=== PATIENT | male | born 1975 | race Caucasian/White ===

== ENCOUNTER 2024-03-27 14:05 | Outpatient (CLI) | payer BC, SELFPAY ==
[2024-03-27 17:07] LABS: Basophils Absolute Auto 0.1 K/mm3 (0.0-0.1); Basophils Percent Auto 0.5 % (0.2-1.2); Eosinophils Absolute Auto 0.2 K/mm3 (0-0.3); Eosinophils Percent Auto 1.8 % (0-4.4); Hematocrit 47.1 % (42.0-52.0); Hemoglobin 14.8 g/dL (14.0-18.0); Immature Granulocyte Absolute 0.03 K/mm3 (0.00-0.031); Immature Granulocyte Percent A 0.3 % (0-0.5); Lymphocytes Absolute Auto 2.78 K/mm3 (0.9-3.2); Lymphocytes Percent Auto 30.2 % (18.3-44.2); Mean Corpuscular HGB Conc 31.4 g/dl (32-36); Mean Corpuscular Hemoglobin 28.4 pg (26-34); Mean Corpuscular Volume 90.4 fl (80-100); Mean Platelet Volume 11.3 fl (7.4-10.4); Monocytes Absolute Auto 0.7 K/mm3 (0.1-0.6); Monocytes Percent Auto 7.4 % (2.6-8.5); Neutrophils Absolute Auto 5.5 K/mm3 (1.3-6.7); Neutrophils Percent Auto 59.8 % (45.5-73.1); Platelet Count Result 331 k/mm3 (150-375); Red Blood Count 5.21 M/mm3 (4.6-6.20); Red Cell Distribution Width 14.2 % (11.5-14.5); White Blood Count 9.2 K/mm3 (4.5-10.0)
[2024-03-27 17:45] LABS: Alanine Aminotransferase 31 U/L (6-50); Albumin Level 4.3 g/dL (3.5-5.1); Alkaline Phosphatase 101 U/L (38-126); Anion Gap 7 mmol/L (4-12); Aspartate Amino Transferase 59 U/L (17-59); Bilirubin,Total 0.5 mg/dL (0.2-1.3); Blood Urea Nitrogen 14 mg/dL (9-20); Calcium 9.4 mg/dL (8.4-10.2); Carbon Dioxide 34 mmol/L (22-30); Chloride 100 mmol/L (98-107); Estimated Glomerular Filt Rate > 60; Glucose 142 mg/dL (65-110); Potassium 4.4 mmol/L (3.4-5.0); Sodium 141 mmol/L (137-145)
[2024-03-27 18:11] LABS: Prostate Specific Antigen 0.1 ng/mL (< OR = 4.0)
[2024-03-27 18:30] LABS: Hemoglobin A1C 6.7 % (<5.7)
[2024-03-27 19:02] LABS: Creatinine Urine 162.4 mg/dL
[2024-03-27 19:47] LABS: MALB Creatinine Ratio 457.8 mg/g (0-30); Microalbumin Urine Random 743.5 mg/L (0-16.7)
== END 2024-03-27 14:06 | disposition home or self-care (01) ==
LOC: ANHGOSHLAB 14:06
PROVIDERS: PCP Nurse Practitioner; Visit Provider Nurse Practitioner
DX: E11.9 Type 2 diabetes mellitus without complications (principal); Z12.5 Encounter for screening for malignant neoplasm of prostate
CPT/HCPCS: 36415; 80053; 82043; 83036; 84153; 85025; G0103

== ENCOUNTER 2024-09-29 14:10 | Outpatient (CLI) | payer BC, SELFPAY ==
--- OUTSIDE RECORDS SUMMARY | 2024-09-29 15:47 | XMS_ITS | Clinical Summary ---
Author Organization [facility] Address [address] [place] [address] Phone Care Team Providers Care Technical Sales Associate Name Role Phone Ellyn Phillips APRN, ENROLLMENT REPRESENTATIVE Primary Care Provider +1- [phone] Allergies No known active allergies Medications atorvastatin (LIPITOR) 40 MG Tablet Take 40 mg by mouth daily. Active metFORMIN (GLUCOPHAGE) 1000 MG Tablet Take 1,000 mg by mouth 2 times daily (with meals). Active amLODIPine (NORVASC) 5 MG Tablet Take 5 mg by mouth daily. Active glipiZIDE (GLUCOTROL) 5 MG Tablet Take 5 mg by mouth in the morning and at bedtime. Active lisinopril (PRINIVIL, ZESTRIL) 20 MG Tablet Take 20 mg by mouth daily. Active Ascorbic Acid (VITAMIN C PO) Take by mouth three times a week. Active semaglutide,0.2 5 or 0.5MG/DOS, (Ozempic, 0.25 or 0.5 MG/DOSE,) 2 MG/3ML Solution Pen-injectorInd ications:Type 2 diabetes mellitus without complication, without long-term current use of insulin 0.5 mg by Subcutaneous route once a week. 3 mL Active Active Problems Problem Noted Date Diagnosed Date Type 2 diabetes mellitus wit hout complication, without long-term current use of insulin 11/08/2023 Primary hypertension 11/08/2023 Immunizations Immunization Administration Dates Next Due Pneumococcal conjugate PCV20 , polysaccharide KFI424 conjugate, adjuvant, PF 02/05/2023 Family History Medical History Relation Name Comments Cancer Father Wesley bone cancer Heart Attack Father Wesley Hypertension Mother Essie Relation Name Status Comments Father Wesley Mother Essie Social History Tobacco Use Types Packs/Day Years Used Date Smoking Tobacco: Former Cigarettes 0.5 30 Q uit: 12/16/2018 Smokeless Tobacco: Never Tobacco Cessation:Counseling Given: No Alcohol Use Standard Drinks/Week Comments Not Currently 0 (1 standard drink = 0.6 oz pur e alcohol) Socially AHC Utilities Answer Date Recorded In the past 12 months has th e [employer], gas, oil, or water [employer] threatened to shut off services in your home? No 11/07/2023 Social Connection and Isolation Panel [NHANES] A nswer Date Recorded In a typical week, how many times do you talk on the phone with family, friends, or neighbors? Once a week 11/07/2023 How often do you get together with friends or re latives? Once a week 11/07/2023 How often do you attend judaism or judaism serv ices? Never 11/07/2023 Do you belong to any clubs o r organizations such as judaism groups, unions, fraternal or athletic groups, or school groups? No 11/07/2023 How often do you attend meet ings of the clubs or organizations you belong to? Never 11/07/2023 Are you , , di vorced, , never , or living with a partner? 11/07/2023 AUDIT-C Answer Date Recorded Q1: How often do you have a drink containing alc ohol? Monthly or less 11/07/2023 Q2: How many drinks containi ng alcohol do you have on a typical day when you are drinking? 3 or 4 11/07/2023 Q3: How often do you have si x or more drinks on one occasion? Never 11/07/2023 Overall Financial Resource Strain (CARDIA) Answe r Date Recorded How hard is it for you to pa y for the very basics like food, housing, medical care, and heating? Not very hard 11/07/2023 [facility] [place] of Occupat ional Health - Occupational Stress Questionnaire Answer Date Recorded Do you feel stress - tense, restless, nervous, or anxious, or unable to sleep at night because your mind is troubled all the time - these days? Not at all 11/07/2023 Exercise Vital Sign Answer Date Recorde d On average, how many days pe r week do you engage in moderate to strenuous exercise (like a brisk walk)? 0 days 11/07/2023 On average, how many minutes do you engage in exercise at this level? 0 min 11/07/2023 Hunger Vital Sign Answer Date Recorded Within the past 12 months, y ou worried that your food would run out before you got the money to buy more. Patient declined Within the past 12 months, t he food you bought just didn't last and you didn't have money to get more. Patient declined PRAPARE - Transportation Answer Date Re corded In the past 12 months, has l ack of transportation kept you from medical appointments or from getting medications? No 10/17 In the past 12 months, has l ack of transportation kept you from meetings, work, or from getting things needed for daily living? No 11/07/2023 Housing Stability Vital Sign Answer Brenton e Recorded In the last 12 months, was t here a time when you were not able to pay the mortgage or rent on time? No 11/07/2023 In the last 12 months, how many places have you lived? 1 11/07/2023 In the last 12 months, was t here a time when you did not have a steady place to sleep or slept in a penitentiary (including now)? No 11/07/2023 Sexually Active Control Partners Comments Yes None Male Sex and Gender Information Value Date Recorded Sex Assigned at Male 12/19/2023 9:09 PM CDT Legal Sex Male 4:55 PM CDT Gender Identity Male 12/19/2023 9:09 PM CDT Sexual Orientation Lesbian or Andrade 12/19/2023 9: 09 PM CDT Last Filed Vital Signs Vital Sign Reading Time Taken Comments Blood Pressure 126/86 11/08/2023 4:05 PM CDT Pulse 83 11/08/2023 4:05 PM CDT Temperature 37.1 C (98.8 F) 11/08/2023 4:05 PM CDT Respiratory Rate 22 11/08/2023 4:05 PM CDT Oxygen Saturation 93% 11/08/2023 4:05 PM CDT Inhaled Oxygen Concentration - - Weight 204.1 kg (450 lb) 02/08/2024 10:11 AM CDT Height 185.4 cm (6' 1 ) 02/12/2024 2:27 PM CDT Body Mass Index 59.37 02/08/2024 10:11 AM CDT Plan of Treatment Health Maintenance Due Date Last Done Comments Diabetes: Eye Exam 1973 Diabetes: Foot Exam 1973 TdaP Immunization 1973 Hepatitis B Immunization (1 of 3 - 19+ 3-dose series) 1992 Colonoscopy 2018 Colorectal Cancer Screening 2018 Cologuard 2023 Immunochemical Fecal Occult Blood 2023 Zoster Immunization (1 of 2) 2023 Influenza Immunization (#1) 2024 SARS-COV-2 Immunization ( season) 2024 Diabetes: Hemoglobin A1c 05/20/2024 11/19/2023 Diabetes: Nephropathy Screening 11/18/2024 Respiratory Syncytial Virus (RSV) Immunization (Adult) (1 - 1-dose 75+ series) 2048 Pneumococcal Immunization (5 0+ years) Completed 02/05/2023 Pneumococcal Immunization Combined Discontinued 2022 Hepatitis C Virus (HCV) Screening Completed 024 Meningococcal Immunization (ACWY) Aged Out No longer eligible based on patient's age to complete this topic Rotavirus Immunization Aged Out No lo nger eligible based on patient's age to complete this topic Procedures Procedure Name Priority Date/Time Associated Diagnosis Comments CMP (COMPREHENSIVE METABOLIC PANEL) Routine 11/19/2023 8:47 AM CDT Type 2 diabetes mellitus without complication, without long-term current use of insulin (HCC) HEMOGLOBIN A1C W/ ESTIMATED GLUCOSE Routine 11/19/2023 8:47 AM CDT Type 2 diabetes mellitus without complication, without long-term current use of insulin (HCC) HEPATITIS C ANTIBODY Routine 11/19/2023 8:47 AM CDT Encounter for hepatitis C screening test for low risk patient from Last 3 Months or Most Recently Relevant to Health Maintenance Results * (ABNORMAL) HEMOGLOBIN A1C W/ ESTIMATED GLUCOSE (11/19/2023 8:47 AM CDT) Pathologist [facility] HGB-A1C 8.6(H) 4.0 - 6.0 % 11/19/2023 12:37 PM CDT [facility] Est Average Glucose 200.1 mg/dL 11/19/2023 12:37 PM CDT [facility] Blood Venipuncture / Unknown 11/19/2023 8:47 AM CDT 11/19/2023 8:47 AM CDT Narrative [facility] - 11/19/2023 12:37 PM CDT HEMOGLOBIN A1C: DIABETIC PATIENTS: WELL-CONTROLLED: 6.2 - 7.0 INTERMEDIATE WELL-CONTROLLED: 7.0 - 9.0 POORLY-CONTROLLED: >9.0 Ellyn Phillips PORTUGUESE TUTOR, ENROLLMENT REPRESENTATIVE CHEMISTRY ORDERABLES Final Result [facility] [address] [place] [address] * HEPATITIS C ANTIBODY (11/19/2023 8:47 AM CDT) [facility] hepatitis C antibody 0.08 <1 S/CO 11/19/2023 10:44 PM CDT [facility] Comment: Signal/Cutoff ratio < 0.79 is Nondetected Signal/Cutoff ratio 0.80-0.99 is Grayzone Signal/Cutoff ratio > 0.99 is Detected Supplemental assays are recommended if signal/cutoff ratio is >/=1.00. Signal/cutoff ratio result >/= 5.00 is 97% predictive of positivity for recombinant immunoblot assay (RIBA) and will be reported to the [place] Department of Public Health as required. Blood Venipuncture / Unknown 11/19/2023 8:47 AM CDT 11/19/2023 8:47 AM CDT Ellyn Phillips PORTUGUESE TUTOR, ENROLLMENT REPRESENTATIVE CHEMISTRY ORDERABLES Final Result [facility] [address] [place] [address], * (ABNORMAL) CMP (COMPREHENSIVE METABOLIC PANEL) (11/19/2023 8:47 AM CDT) SODIUM 142 136 - 145 mmol/L 11/19/2023 12:55 PM CDT [facility] POTASSIUM 4.7 3.5 - 5.1 mmol/L 11/19/2023 12:55 PM CDT [facility] CHLORIDE 104 98 - 107 mmol/L 11/19/2023 12:55 PM CDT [facility] CO2, VENOUS 29 22 - 30 mmol/L 11/19/2023 12:55 PM CDT [facility] ANION GAP 13.7 <18.0 mmol/L 11/19/2023 12:55 PM CDT [facility] GLUCOSE 181(H) 70 - 99 mg/dL 11/19/2023 12:55 PM CDT [facility] BUN 12 8 - 26 mg/dL 11/19/2023 12:55 PM CDT [facility] CREATININE, BLOOD 0.70 0.70 - 1.30 mg/dL 11/19/2023 12:55 PM CDT [facility] BUN/CREATININE RATIO 17 12 - 20 ratio 11/19/2023 12:55 PM CDT [facility] TOTAL PROTEIN 7.1 6.3 - 8.2 g/dL 11/19/2023 12:55 PM CDT [facility] ALBUMIN 3.8 3.5 - 5.0 g/dL 11/19/2023 12:55 PM CDT [facility] A/G RATIO 1.2 1.0 - 2.2 11/19/2023 12:55 PM CDT [facility] CALCIUM 8.9 8.7 - 10.5 mg/dL 11/19/2023 12:55 PM CDT [facility] T BILI 0.4 0.2 - 1.2 mg/dL 11/19/2023 12:55 PM CDT [facility] SGOT (AST) 14 5 - 34 U/L 11/19/2023 12:55 PM CDT [facility] SGPT (ALT) 25 0 - 55 U/L 11/19/2023 12:55 PM CDT [facility] ALKALINE PHOSPHATASE 108 40 - 150 U/L 11/19/2023 12:55 PM CDT [facility] IS THE PATIENT REQUIRED TO BE FASTING? No 11/19/2023 12:55 PM CDT [facility] GFR, ESTIMATED >60 >=60 11/19/2023 12:55 PM CDT [facility] Comment: Creatinine Clearance is the preferred criteria for selecting drug dose adjustments in renally impaired patients. The GFR is provided as additional pertinent clinical information. GFR is reported in mL/min/1.73 sq m. Calculation based on the Chronic Kidney Disease Epidemiology Collaboration (CKD- EPI) equation refit without adjustment for race. GFR, EST. >60 >=60 024 12:55 PM CDT [facility] GFR, EST. NONAFRICAN >60 >=60 11/19/2023 12:55 PM CDT [facility] Blood Venipuncture / Unknown 11/19/2023 8:47 AM CDT 11/19/2023 8:47 AM CDT Ellyn Phillips PORTUGUESE TUTOR, ENROLLMENT REPRESENTATIVE CHEMISTRY ORDERABLES Final Result [facility] [address] [place] [address] from Last 3 Months or Most Recently Relevant to Health Maintenance Insurance [facility] Care Teams Technical Sales Associate Relationship Specialty Start Date End Date Ellyn Phillips, PORTUGUESE TUTOR, ENROLLMENT REPRESENTATIVE [address] [place] [address] PCP - General Certified Nurse Practitioner 02/12/24
--- OUTSIDE RECORDS SUMMARY | 2024-09-29 15:47 | XMS_ITS | Encounter Summary ---
Author Organization [facility] Address [address] [place] [address] Phone Care Team Providers Care Lock Tender Chief Operator Name Role Phone Ellyn Phillips APRN, MARCI Primary Care Provider [phone]- [phone] Ellyn Phillips APRN, MARCI Primary Care Provider [phone]- [phone] Reason for Visit * Reason Comments Medication Refill Encounter Details Date Type Department Care Team (Late st Contact Info) Description 01/19/2024 Refill [facility] - Primary Care - [place]ast[place]ia [address] [place] [address] Ellyn Phillips APRN, PETROPHYSICAL ENGINEER [address] [place] [address] Medication Refill Social History Tobacco Use Types Packs/Day Years Used Date Smoking Tobacco: Former Cigarettes Smokeless Tobacco: Never Alcohol Use Standard Drinks/Week Comments Yes 0 (1 standard drink = 0.6 oz pur e alcohol) Socially [employer] Utilities Answer Date Recorded In the past 12 months has [employer], gas, oil, or water company threatened to shut off services in your home? No 11/07/2023 Social Connection and Isolation Panel [NHANES] A nswer Date Recorded In a typical week, how many times do you talk on the phone with family, friends, or neighbors? Once a week 11/07/2023 How often do you get together with friends or re latives? Once a week 11/07/2023 How often do you attend orthodoxy or alevism serv ices? Never 11/07/2023 Do you belong to any clubs o r organizations such as orthodoxy groups, unions, fraternal or athletic groups, or [...] care, and heating? Not very hard 11/07/2023 [facility] of Occupat ional Health - Occupational Stress [...] place to sleep or slept in a longterm (including now)? No 11/07/2023 Sexually Active Control Partners Comments Yes Male Sex and Gender Information Value Date Recorded Sex Assigned at Male 12/19/2023 9:09 PM CDT Legal Sex Male 4:55 PM CDT Gender Identity Male 12/19/2023 9:09 PM CDT Sexual Orientation Lesbian or Andrade 12/19/2023 9: 09 PM CDT documented as of this encounter Miscellaneous Notes * Telephone Encounter - Rip Staley RN - 01/21/2024 9:59 AM CDT Duplicate Request documented in this encounter Plan of Treatment Not on file documented as of this encounter Visit Diagnoses Diagnosis Type 2 diabetes mellitus without complication, without long-term current use of insulin documented in this encounter Care Teams Lock Tender Chief Operator Relationship Specialty Start Date End Date Ellyn Phillips APRN, PETROPHYSICAL ENGINEER [address] [place] [address] PCP - General Certified Nurse Practitioner 11/08/23 02/10/24 Ellyn Phillips APRN, PETROPHYSICAL ENGINEER [address] [place] [address] PCP - General Certified Nurse Practitioner 02/12/24 documented as of this encounter
[2024-09-29 20:19] LABS: Alanine Aminotransferase 62 U/L (6-50); Albumin Level 4.6 g/dL (3.5-5.1); Alkaline Phosphatase 89 U/L (38-126); Anion Gap 8 mmol/L (4-12); Aspartate Amino Transferase 38 U/L (17-59); Bilirubin,Total 0.8 mg/dL (0.2-1.3); Blood Urea Nitrogen 11 mg/dL (9-20); Calcium 9.4 mg/dL (8.4-10.2); Carbon Dioxide 33 mmol/L (22-30); Chloride 99 mmol/L (98-107); Cholesterol 132 mg/dL (0-200); Estimated Glomerular Filt Rate > 60; Glucose 113 mg/dL (65-110); HDL Direct 32 mg/dL; Potassium 5.4 mmol/L (3.4-5.0); Sodium 140 mmol/L (137-145); Triglycerides 137 mg/dL (<150)
[2024-09-29 20:30] LABS: LDL Cholesterol Direct 72 mg/dL
[2024-09-29 21:46] LABS: Hemoglobin A1C 5.8 % (<5.7)
[2024-09-29 21:48] LABS: Creatinine Urine 270.8 mg/dL
[2024-09-29 22:40] LABS: MALB Creatinine Ratio 266.1 mg/g (0-30); Microalbumin Urine Random 720.5 mg/L (0-16.7)
== END 2024-09-29 14:11 | disposition home or self-care (01) ==
LOC: ANHGOSHLAB 14:11
PROVIDERS: PCP Nurse Practitioner; Visit Provider Nurse Practitioner
DX: E78.2 Mixed hyperlipidemia (principal); I10 Essential (primary) hypertension; E11.9 Type 2 diabetes mellitus without complications
CPT/HCPCS: 36415; 80053; 80061; 82043; 83036

== ENCOUNTER 2024-10-06 11:50 | Outpatient (CLI) | payer BC, SELFPAY ==
--- OUTSIDE RECORDS SUMMARY | 2024-10-06 13:30 | XMS_ITS | Encounter Summary ---
Author Organization [facility] Address [address] [place] [address] Phone Care Team Providers Care Senior Logistics Manager Name Role Phone Ellyn Phillips APRN, MARCI Primary Care Provider [phone]- [phone] Ellyn Phillips APRN, MARCI Primary Care Provider [phone]- [phone] Reason for Visit * Reason Comments Medication Refill Encounter Details Date Type Department Care Team (Late st Contact Info) Description 01/19/2024 Refill [facility] Medical [facility] - Primary Care - [place]ast[place] [address] [place] [address] Ellyn Phillips APRN, SURGICAL SERVICES ASST [address] [address] Medication Refill Social History Tobacco Use Types Packs/Day Years Used Date Smoking Tobacco: Former Cigarettes Smokeless Tobacco: Never Alcohol Use Standard Drinks/Week Comments Yes 0 (1 standard drink = 0.6 oz pur e alcohol) Socially AHC Utilities Answer Date Recorded In the past 12 months has [employer], gas, oil, or water company threatened to [...] week 11/07/2023 How often do you attend yazdanism or synagogue serv ices? Never 11/07/2023 Do you belong to any clubs o r organizations such as yazdanism groups, unions, fraternal or athletic groups, or [...] care, and heating? Not very hard 11/07/2023 [facility] of Occupat ional Health - Occupational Stress [...] place to sleep or slept in a long term (including now)? No 11/07/2023 Sexually Active Control [...] insulin documented in this encounter Care Teams Senior Logistics Manager Relationship Specialty Start Date End Date Ellyn Phillips APRN, SURGICAL SERVICES ASST [address] [place] [address] PCP - General Certified Nurse Practitioner 11/08/23 02/10/24 Ellyn Phillips APRN, SURGICAL SERVICES ASST [address] [place] [address] PCP - General Certified Nurse Practitioner 02/12/24 documented as of this encounter
--- OUTSIDE RECORDS SUMMARY | 2024-10-06 13:30 | XMS_ITS | Clinical Summary ---
Author Organization [facility] Address [address] [place] [address] Phone Care Team Providers Care Toolroom Machinist Name Role Phone Ellyn Phillips APRN, NEWS PRODUCTION SUPERVISOR Primary Care Provider [phone]- [phone] Allergies No known active allergies Medications atorvastatin [...] Next Due Pneumococcal conjugate PCV20 , polysaccharide FPR219 conjugate, adjuvant, PF 02/05/2023 Family History Medical [...] the past 12 months has th e [employer], gas, oil, or water [employer] threatened to shut off services in your home? No 11/07/2023 Social Connection and Isolation Panel [NHANES] A nswer Date Recorded In a typical week, how many times do you talk on the phone with family, friends, or neighbors? Once a week 11/07/2023 How often do you get together with friends or re latives? Once a week 11/07/2023 How often do you attend temple or protestant serv ices? Never 11/07/2023 Do you belong to any clubs o r organizations such as temple groups, unions, fraternal or athletic groups, or [...] care, and heating? Not very hard 11/07/2023 [facility] [place] of Occupat ional Health - Occupational Stress [...] ESTIMATED GLUCOSE (11/19/2023 8:47 AM CDT) Pathologist [facility] HGB-A1C 8.6(H) 4.0 - 6.0 % 11/19/2023 12:37 PM CDT [facility] Est Average Glucose 200.1 mg/dL 11/19/2023 12:37 PM CDT [facility] Blood Venipuncture / Unknown 11/19/2023 8:47 AM CDT 11/19/2023 8:47 AM CDT Narrative [facility] - 11/19/2023 12:37 PM CDT HEMOGLOBIN A1C: DIABETIC PATIENTS: WELL-CONTROLLED: 6.2 - 7.0 INTERMEDIATE WELL-CONTROLLED: 7.0 - 9.0 POORLY-CONTROLLED: >9.0 Ellyn Phillips CORONER, NEWS PRODUCTION SUPERVISOR CHEMISTRY ORDERABLES Final Result [facility] [address] [place] [address] * HEPATITIS C ANTIBODY (11/19/2023 8:47 AM CDT) [facility] hepatitis C antibody 0.08 <1 S/CO 11/19/2023 10:44 PM CDT [facility] Comment: Signal/Cutoff ratio < 0.79 is Nondetected Signal/Cutoff ratio 0.80-0.99 is Grayzone Signal/Cutoff ratio > 0.99 is Detected Supplemental assays are recommended if signal/cutoff ratio is >/=1.00. Signal/cutoff ratio result >/= 5.00 is 97% predictive of positivity for recombinant immunoblot assay (RIBA) and will be reported to the [place] Department of Public Health as required. Blood Venipuncture / Unknown 11/19/2023 8:47 AM CDT 11/19/2023 8:47 AM CDT Ellyn Phillips CORONER, NEWS PRODUCTION SUPERVISOR CHEMISTRY ORDERABLES Final Result [facility] [address] [place] [address], * (ABNORMAL) CMP (COMPREHENSIVE METABOLIC PANEL) (11/19/2023 8:47 AM CDT) SODIUM 142 136 - 145 mmol/L 11/19/2023 12:55 PM CDT [facility] POTASSIUM 4.7 3.5 - 5.1 mmol/L 11/19/2023 12:55 PM CDT [facility] CHLORIDE 104 98 - 107 mmol/L 11/19/2023 12:55 PM CDT [facility] CO2, VENOUS 29 22 - 30 mmol/L 11/19/2023 12:55 PM CDT [facility] ANION GAP 13.7 <18.0 mmol/L 11/19/2023 12:55 PM CDT [facility] GLUCOSE 181(H) 70 - 99 mg/dL 11/19/2023 12:55 PM CDT [facility] BUN 12 8 - 26 mg/dL 11/19/2023 12:55 PM CDT [facility] CREATININE, BLOOD 0.70 0.70 - 1.30 mg/dL 11/19/2023 12:55 PM CDT [facility] BUN/CREATININE RATIO 17 12 - 20 ratio 11/19/2023 12:55 PM CDT [facility] TOTAL PROTEIN 7.1 6.3 - 8.2 g/dL 11/19/2023 12:55 PM CDT [facility] ALBUMIN 3.8 3.5 - 5.0 g/dL 11/19/2023 12:55 PM CDT [facility] A/G RATIO 1.2 1.0 - 2.2 11/19/2023 12:55 PM CDT [facility] CALCIUM 8.9 8.7 - 10.5 mg/dL 11/19/2023 12:55 PM CDT [facility] T BILI 0.4 0.2 - 1.2 mg/dL 11/19/2023 12:55 PM CDT [facility] SGOT (AST) 14 5 - 34 U/L 11/19/2023 12:55 PM CDT [facility] SGPT (ALT) 25 0 - 55 U/L 11/19/2023 12:55 PM CDT [facility] ALKALINE PHOSPHATASE 108 40 - 150 U/L 11/19/2023 12:55 PM CDT [facility] IS THE PATIENT REQUIRED TO BE FASTING? No 11/19/2023 12:55 PM CDT [facility] GFR, ESTIMATED >60 >=60 11/19/2023 12:55 PM CDT [facility] Comment: Creatinine Clearance is the preferred criteria for selecting drug dose adjustments in renally impaired patients. The GFR is provided as additional pertinent clinical information. GFR is reported in mL/min/1.73 sq m. Calculation based on the Chronic Kidney Disease Epidemiology Collaboration (CKD- EPI) equation refit without adjustment for race. GFR, EST. >60 >=60 024 12:55 PM CDT [facility] GFR, EST. NONAFRICAN >60 >=60 11/19/2023 12:55 PM CDT [facility] Blood Venipuncture / Unknown 11/19/2023 8:47 AM CDT 11/19/2023 8:47 AM CDT Ellyn Phillips CORONER, NEWS PRODUCTION SUPERVISOR CHEMISTRY ORDERABLES Final Result [facility] [address] [place] [address] from Last 3 Months or Most Recently Relevant to Health Maintenance Insurance [facility] Care Teams Toolroom Machinist Relationship Specialty Start Date End Date Ellyn Phillips, CORONER, NEWS PRODUCTION SUPERVISOR [address] [place] [address] PCP - General Certified Nurse Practitioner 02/12/24
--- OUTSIDE RECORDS SUMMARY | 2024-10-06 13:31 | XMS_ITS | Data Portability ---
Author Organization [facility] GENABeau Address [address] [place] [address] Assessment Encounter Date Assessment Date Assessment LastModified by Organization Details LastModified Time 10/12/2023 10/12/2023 I personally saw and examined pt w/resident. Documentation was reviewed, and I agree w/resident's note. Dr. Bey [email or web address] Not available 10/15/2023 17:49:57 Plan of Treatment Reminders Order Date Submit Date Provider Last Modified By Organization Details Last Modified Time Details Appointments None recorded. Lab HbA1c (hemoglob in A1c), blood 2023 024 [email or web address] In-Office Order, Internal Use Only DO Not Attach Compendium DO Not Attach Compendium, Do Not Delete/merge, [id number] 4 15:34:26 influenza virus A + B + SARS-CoV- 2 (COVID19) Ag panel, rapid IA, upper respirato ry specimen 2022 023 KIM In-Office Order, Internal Use Only DO Not Attach Compendium DO Not Attach Compendium, Do Not Delete/merge, [id number] 3 17:09:13 rapid SARS CoV 2 Ag, QL IA, respirato ry specimen 2022 023 [email or web address] In-Office Order, Internal Use Only DO Not Attach Compendium DO Not Attach Compendium, Do Not Delete/merge, [id number] 3 12:56:15 rapid flu (A+B) 2022 023 [email or web address] In-Office Order, Internal Use Only DO Not Attach Compendium DO Not Attach Compendium, Do Not Delete/merge, [id number] 3 12:56:17 rapid strep group A, throat 2022 023 [email or web address] In-Office Order, Internal Use Only DO Not Attach Compendium DO Not Attach Compendium, Do Not Delete/merge, [id number] 3 12:56:18 HbA1c (hemoglob in A1c), blood 2022 023 KIM [facility], [address], [address], [place], [address], 3 06:17:58 noninvasi ve colorecta l cancer DNA + occult blood screening , QL, stool 2022 023 [facility] (Cologuard Orders Only), [address], [address], [place], [address], 4 11:59:52 HIV 1 + 2, meaningfu l use set 2022 023 K[facility], [address], [address], [place], [address], 3 06:17:58 HbA1c (hemoglob in A1c), blood 2022 023 [facility], [address], [address], [place], [address], 3 13:11:49 CMP, serum or plasma 2022 023 [facility], [address], [address], [place], [address], 3 06:16:09 albumin/c reatinine , mass ratio, urine 2022 023 [facility], [address], [address], [place], [address], 3 13:11:47 vitamin B12 + folate, serum or blood 2022 023 [facility], [address], [address], [place], [address], 3 13:11:48 lipid panel, serum 2022 023 [facility], [address], [address], [place], [address], 3 06:16:09 Referral diabetic ophthalmo logy referral 2022 023 KIM Hahn MD, [address], [place], [address], 3 12:28:52 gastroent erologist referral - Screening colonosco py 2022 023 [email or web address] Not available 3 10:48:19 Procedures None recorded. Surgeries None recorded. Imaging None recorded. Medication Orders glipizide 5 mg tablet 2023 024 [facility], [address] [place], [address], 4 12:10:36 amlodipin e 5 mg tablet 2023 024 [facility], [address] [place], [address], 4 15:34:32 Paxlovid 300 mg (150 mg x 2)-100 mg tablets in a dose pack 2022 023 [id number], [address], [place], [id number], 4 14:48:45 lisinopri l 40 mg tablet 2022 023 [facility] [address], [address] [place], [address], 3 12:56:22 valacyclo vir 1 gram tablet [facility] [address] [place], [address], 4 14:59:08 metformin 1,000 mg tablet 2022 023 [facility] [address], [address] [place], [address], 3 09:49:18 atorvasta tin 40 mg tablet 2022 023 [facility] [address], [address] [place], [address], 3 09:49:18 lisinopri l 20 mg tablet 2022 023 [facility] [address], [address] [place], [address], 3 12:32:27 metformin 1,000 mg tablet 2022 023 [facility] [address], [address] [place], [address], 3 10:28:46 lisinopri l 10 mg tablet 2022 023 [facility] [address], [address] [place], [address], 3 12:32:38 Patient TargetsNo targets recorded. Patient Instructions Encounter Date Encounter Id Patient Instructions Last Modified By Organization Details Last Modified Time 02/05/2023 [id number] A healthy lifestyle: care instructions [email or web address] Not available 02/05/2023 10:28:30 Attending Physician Attestation I personally saw and examined the patient with the resident. I have reviewed the documentation and agree with the history, physical findings, work-up, and medical decision making as recorded. Melanie Pool MD [email or web address] Not available 02/15/2023 12:40:25 04/26/2023 [id number] A healthy lifestyle: care instructions [email or web address] Not available 04/27/2023 11:21:47 Attending Physician Attestation I did not personally see or examine the patient with the resident. I was physically present to provide indirect supervision through entire encounter. I have reviewed the documentation and agree with the history, physical findings, work-up, and medical decision making as recorded. Melanie Pool MD mmetias Not available 04/26/2023 09:47:36 05/16/2023 [id number] Attending Physician Attestation I did not personally see or examine the patient with the resident. I was physically present to provide indirect supervision through entire encounter. I have reviewed the documentation and agree with the history, physical findings, work-up, and medical decision making as recorded. Melanie Pool MD [email or web address] Not available 05/22/2023 19:05:38 06/05/2023 [id number] A healthy lifestyle: care instructions [email or web address] Not available 06/05/2023 17:06:15 Attending Physician Attestation I personally saw and examined the patient with the resident. I have reviewed the documentation and agree with the history, physical findings, work-up, and medical decision making as recorded. Melanie Pool MD [email or web address] Not available 06/15/2023 09:28:46 10/12/2023 [id number] learning about type 2 diabetes [email or web address] Not available 10/12/2023 15:34:24 type 2 diabetes: care instructions [email or web address] Not available 10/12/2023 15:34:24 learning about high blood pressure [email or web address] Not available 10/12/2023 15:34:24 A healthy lifestyle: care instructions [email or web address] Not available 10/12/2023 15:34:24 Reason for Referral Diabetic Ophthalmology Refer ral for Type 2 diabetes mellitus Referring Physician: Ronda Parker Delivery Table Operator, Encounter Date: 02/05/2023 Family Law Attorney Referral for Screening for malignant neoplasm of colon Screening colonoscopy Referring Physician: Ronda Parker Delivery Table Operator, Encounter Date: 02/05/2023 Results Created Date Observation Date Name Description Value Unit Range Abnormal Flag Note LastModifiedBy Organization Detail LastModifiedTime 04/25/20 24 04/25/2024 COLOG UARD cologuard result Cancel led - Order d not applic able Not Available [facility] (Cologuard Orders Only) [address], [place], [address], 04/25/2024 11:59:52 02/06/20 23 02/05/2023 LIPID PANEL cholesterol, total 195 mg/dL 100-19 9 Not Available [facility] [address] [place] [address], [address], 02/06/2023 06:16:09 02/06/20 23 02/05/2023 LIPID PANEL triglyceride s 146 mg/dL 0-149 Not Available [facility] [address] [place] [address], [address], 02/06/2023 06:16:09 02/06/20 23 02/05/2023 LIPID PANEL HDL cholesterol 39 mg/dL 40-999 below low normal Not Available [facility] [address] [place] [address], [address], 02/06/2023 06:16:09 02/06/20 23 02/05/2023 LIPID PANEL VLDL cholesterol amparo 29 mg/dL 5-40 Not Available [facility] [address] [place] [address], [address], 02/06/2023 06:16:09 02/06/20 23 02/05/2023 LIPID PANEL LDL chol calc ([facility]) 147 mg/dL 0-99 above high normal Not Available [facility] [address] [place] [address], [address], 02/06/2023 06:16:09 02/06/20 23 02/05/2023 COMP. METAB OLIC PANEL (14) glucose 141 mg/dL 70-99 above high normal Not Available [facility] [address] [place] [address], [address], 02/06/2023 06:16:09 02/06/20 23 02/05/2023 COMP. METAB OLIC PANEL (14) BUN 10 mg/dL 6-24 Not Available [facility] [address] [place], [address], 02/06/2023 06:16:09 02/06/20 23 02/05/2023 COMP. METAB OLIC PANEL (14) creatinine 0.65 mg/dL 0.76-1 .27 below low normal Not Available [facility] [address] [place] [address], [address], 02/06/2023 06:16:09 02/06/20 23 02/05/2023 COMP. METAB OLIC PANEL (14) eGFR 116 >=60 Units for eGFR value s are mL/mi n/1.7 3 The eGFR Calcu latio n has not been valid ated for patie nts under the age of 18. If test resul ts are displ ayed for a patie nt under the age of 18, disre max that value . Not Available [facility] [address] [place] [address], [address], 02/06/2023 06:16:09 02/06/20 23 02/05/2023 COMP. METAB OLIC PANEL (14) BUN/creatini ne ratio 16 9-20 Not Available [facility] [address] [place] [address], [address], 02/06/2023 06:16:09 02/06/20 23 02/05/2023 COMP. METAB OLIC PANEL (14) sodium 143 mmol/ L 134-14 4 Not Available [facility] [address] [place] [address], [address], 02/06/2023 06:16:09 02/06/20 23 02/05/2023 COMP. METAB OLIC PANEL (14) potassium 5.2 mmol/ L 3.5-5. 2 Not Available [facility] [address] [place] [address], [address], 02/06/2023 06:16:09 02/06/20 23 02/05/2023 COMP. METAB OLIC PANEL (14) chloride 102 mmol/ L 96-106 Not Available [facility] [address] [place], [address], 02/06/2023 06:16:09 02/06/20 23 02/05/2023 COMP. METAB OLIC PANEL (14) carbon dioxide, total 30 mmol/ L 20-29 above high normal Not Available [facility] [address] [place], [address], 02/06/2023 06:16:09 02/06/20 23 02/05/2023 COMP. METAB OLIC PANEL (14) calcium 9.5 mg/dL 8.7-10 .2 Not Available [facility] [address] [place], [address], 02/06/2023 06:16:09 02/06/20 23 02/05/2023 COMP. METAB OLIC PANEL (14) protein, total 7.7 g/dL 6.0-8. 5 Not Available [facility] [address] [place], [address], 02/06/2023 06:16:09 02/06/20 23 02/05/2023 COMP. METAB OLIC PANEL (14) albumin 4.1 g/dL 4.1-5. 1 Not Available [facility] [address] [place], [address], 02/06/2023 06:16:09 02/06/20 23 02/05/2023 COMP. METAB OLIC PANEL (14) globulin, total 3.6 g/dL 1.5-4. 5 Not Available [facility] [address] [place], [address], 02/06/2023 06:16:09 02/06/20 23 02/05/2023 COMP. METAB OLIC PANEL (14) A/G ratio 1.0 1.2-2. 2 below low normal Not Available [facility] [address] [place] [address], [address], 02/06/2023 06:16:09 02/06/20 23 02/05/2023 COMP. METAB OLIC PANEL (14) bilirubin, total 0.4 mg/dL 0.0-1. 2 Not Available [facility] [address] [place], [address], 02/06/2023 06:16:09 02/06/20 23 02/05/2023 COMP. METAB OLIC PANEL (14) alkaline phosphatase 106 IU/L 44-121 Not Available [facility] Department [address] [place], [address], 02/06/2023 06:16:09 02/06/20 23 02/05/2023 COMP. METAB OLIC PANEL (14) AST (SGOT) 20 IU/L 0-40 Not Available [facility] Department [address] [place], [address], 02/06/2023 06:16:09 02/06/20 23 02/05/2023 COMP. METAB OLIC PANEL (14) ALT (SGPT) 33 IU/L 0-44 Not Available [facility] Department [address] [place], [address], 02/06/2023 06:16:09 02/06/20 23 02/06/2023 ALBUM IN/CR EATIN INE RATIO ,URIN E creatinine, urine 124.2 mg/dL notest ab. Not Available [facility] ([facility]) [address] [facility], [place], [address], 02/14/2023 15:10:15 02/06/20 23 02/06/2023 ALBUM IN/CR EATIN INE RATIO ,URIN E albumin, urine 1383.2 ug/mL notest ab. Resul ts confi rmed on dilut ion. Not Available [facility] ([facility]) [address] [facility], [place], [address], 02/14/2023 15:10:15 02/06/20 23 02/14/2023 ALBUM IN/CR EATIN INE RATIO ,URIN E alb/creat ratio 1114* mg/g_ creat 0-29 above high normal Amparo l: 0 - 29 Moder ately incre ased: 30 - 300 Sever whitney incre ased: >300 Cristine ified by repea t zay sis Not Available [facility] ([facility]) [address] [facility], [place], [address], 02/14/2023 15:10:15 02/06/20 23 02/06/2023 VITAM IN B12 AND FOLAT E vitamin B12 551 pg/mL 232-12 45 Not Available [facility] ([facility]) [address] [facility], [place], [address], 02/06/2023 13:11:48 02/06/20 23 02/06/2023 VITAM IN B12 AND FOLAT E folate (folic acid), serum 7.0 NG/mL >3.0 A serum folat e cris ntrat ion of less than 3.1 ng/mL is consi dered to repre sent clini amparo defic iency . Not Available [facility] ([facility]) [address] [facility], [place], [address], 02/06/2023 13:11:48 02/06/20 23 02/06/2023 HEMOG LOBIN A1C hemoglobin A1C 6.7 % 4.8-5. 6 above high normal Predi abete s: 5.7 - 6.4 Diabe joycelyn: >6.4 Glyce channing contr ol for adult s with diabe joycelyn: <7.0 Not Available [facility] ([facility]) [address] [facility], [place], [address], 02/06/2023 13:11:49 04/26/20 23 04/26/2023 HEMOG LOBIN A1C hemoglobin A1C 7.3 % 4.8-5. 6 above high normal Predi abete s: 5.7 - 6.4 Diabe joycelyn: >6.4 Glyce channing contr ol for adult s with diabe joycelyn: <7.0 Not Available [facility] ([facility]) [address] [facility], [place], [address], 04/27/2023 06:17:57 04/26/20 23 04/27/2023 HIV AB/P2 4 AG WITH REFLE X HIV Ab/P24 Ag screen Non Reacti ve nonrea ctive HIV Negat kenny HIV-1 /HIV- 2 antib odies and HIV-1 p24 antig en were NOT detec ritu. There is no labor atory evide nce of HIV infec tion. Not Available [facility] ([facility]) [address] [facility], [place], [address], 04/27/2023 06:17:58 05/16/20 23 05/16/2023 rapid strep group A, throa t Strep negati ve Not Available In-Office Order Internal Use Only DO Not Attach Compendium DO Not Attach Compendium, Do Not Delete/merge, [id number] 05/16/2023 12:46:14 05/16/20 23 05/16/2023 rapid flu (A+B) Flu A negati ve Not Available In-Office Order Internal Use Only DO Not Attach Compendium DO Not Attach Compendium, Do Not Delete/merge, [id number] 05/16/2023 12:39:15 05/16/20 23 05/16/2023 rapid flu (A+B) Flu B negati ve Not Available In-Office Order Internal Use Only DO Not Attach Compendium DO Not Attach Compendium, Do Not Delete/merge, [id number] 05/16/2023 12:39:15 05/16/20 23 05/16/2023 rapid SARS CoV 2 Ag, QL IA, respi rator y speci men rapid SARS CoV 2 Ag, QL IA, respiratory specimen negati ve Not Available In-Office Order Internal Use Only DO Not Attach Compendium DO Not Attach Compendium, Do Not Delete/merge, [id number] 05/16/2023 12:39:14 06/05/20 23 06/05/2023 influ alexandra virus A + B + SARS- CoV-2 (COVI D19) Ag panel , rapid IA, upper respi rator y speci men Flu A negati ve Not Available In-Office Order Internal Use Only DO Not Attach Compendium DO Not Attach Compendium, Do Not Delete/merge, [id number] 06/05/2023 16:57:09 06/05/20 23 06/05/2023 influ alexandra virus A + B + SARS- CoV-2 (COVI D19) Ag panel , rapid IA, upper respi rator y speci men Flu B negati ve Not Available In-Office Order Internal Use Only DO Not Attach Compendium DO Not Attach Compendium, Do Not Delete/merge, [id number] 06/05/2023 16:57:09 06/05/20 23 06/05/2023 influ alexandra virus A + B + SARS- CoV-2 (COVI D19) Ag panel , rapid IA, upper respi rator y speci men Rapid SARS CoV 2 Ag, QL IA, respiratory specimen positi ve Not Available In-Office Order Internal Use Only DO Not Attach Compendium DO Not Attach Compendium, Do Not Delete/merge, [id number] 06/05/2023 16:57:09 10/12/19 24 10/12/2023 HbA1c (hemo globi n A1c), blood HbA1c 10.0 Not Available In-Office Order Internal Use Only DO Not Attach Compendium DO Not Attach Compendium, Do Not Delete/merge, [id number] 10/12/2023 15:29:40 Result Notes None recorded. Problems Name Problem SNOMED Code Status Onset Date Resolution Date Notes Provider Name and Address Organization Details Recorded Time Type 2 diabetes mellitus 62329657 Active 2022 RONDA PARKER MD Attn: Accounting ,[address] [facility], [place], [address] , [facility] 3 09:58:46 Essential hypertension 99596621 Active 2022 ORNDA PARKER MD Attn: Accounting ,[address] [facility], [place], [address] , [facility] 3 09:58:48 Hyperlipidemi a 56899235 Active 2022 RONDA PARKER MD Attn: Accounting ,[address] [facility], [place], [address] , [place] [facility] 3 15:23:37 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 Procedures Surgical History Date Name Laterality Status Provider Name and Address Organization Details Recorded Time 10/17/19 10 laparoscopic adjustable gastric banding completed Ivet Bob MA [place] [facility] 02/05/2023 09:21:10 Imaging Results None recorded. Procedure Notes None recorded. Medical Equipment None Reported. Allergies No known drug allergies Medications Name Sig Start Date Stop Date Status Note LastModified by Organization Details LastModified Time atorvastati n 40 mg tablet TAKE 1 TABLET BY MOUTH ONCE DAILY active Not Available Not Available No t Available valacyclovi r 1 gram tablet TAKE 1 TABLET BY MOUTH EVERY 12 HOURS FOR 7 DAYS 10/11 completed Not Available Not Available Not Available lisinopril 20 mg tablet TAKE 1 TABLET BY MOUTH ONCE DAILY 05/16 completed Not Available Not Available Not Available amlodipine 5 mg tablet Take 1 tablet every day by oral route, for high blood pressure. 2023 active Not Available Not Available Not Avai lable metformin 1,000 mg tablet TAKE 1 TABLET BY MOUTH TWICE DAILY FOR 90 DAYS active Not Available Not Available No t Available lisinopril 10 mg tablet Take 1 tablet every day by oral route for 30 days. 05/16 completed Not Available Not Available Not Available lisinopril 40 mg tablet TAKE 1 TABLET BY MOUTH ONCE DAILY active Not Available Not Available No t Available glipizide 5 mg tablet TAKE 1 TABLET BY MOUTH TWICE DAILY active Not Available Not Available No t Available amlodipine 02/05 completed Not Available Not Available Not Available empaglifloz in 10 mg tablet Take 1 tablet every day by oral route. 10/11 completed Not Available Not Available Not Available Paxlovid 300 mg (150 mg x 2)-100 mg tablets in a dose pack TAKE 2 TABLETS OF NIRMATREL VIR AND 1 TABLET OF RITONAVIR BY MOUTH TWICE DAILY FOR 5 DAYS 10/11 completed Not Available Not Available Not Available Vitals Date Recorded Body weight Heart rate Body temperature Respiratory rate Systolic blood pressure Diastolic blood pressure Provider Name and Address Organization Details Last Updated DateTime 3 210242. 71 g 86 /min 96.1 [degF] 18 /min 145 mm[Hg] 91 mm[Hg] Ivet Bob MA [facility] 3 09:09:40 Date Recorded Body weight Heart rate Body temperature Respiratory rate Oxygen saturation Oxygen saturation in Arterial blood by Pulse oximetry Body mass index (BMI) Body height Systolic blood pressure Diastolic blood pressure Systolic blood pressure Diastolic blood pressure Provider Name and Address Organization Details Last Updated DateTime 3 618488. 86 g 88 /min 98 [degF] 14 /min 98 % 98 % 61.2 kg/m2 185.42 cm 146 mm[Hg] 90 mm[Hg] 148 mm[Hg] 92 mm[Hg] Ivet Bob MA [place] [facility] 3 09:29:54 Date Recorded Body height Body mass index (BMI) Body weight Oxygen saturation Oxygen saturation in Arterial blood by Pulse oximetry Heart rate Body temperature Respiratory rate Systolic blood pressure Diastolic blood pressure Provider Name and Address Organization Details Last Updated DateTime 3 185.42 cm 61.7 kg/m2 603646. 74 g 96 % 96 % 92 /min 99.8 [degF] 18 /min 155 mm[Hg] 91 mm[Hg] Buffy Loza MA [facility] 3 12:16:57 Date Recorded Body height Body mass index (BMI) Body weight Heart rate Body temperature Respiratory rate Systolic blood pressure Diastolic blood pressure Provider Name and Address Organization Details Last Updated DateTime 3 185.42 cm 62.3 kg/m2 248305. 4 g 103 /min 98.9 [degF] 16 /min 166 mm[Hg] 94 mm[Hg] Shelly Tuttle MA [facility] 3 16:05:45 Date Recorded Body height Body mass index (BMI) Body weight Body temperature Respiratory rate Heart rate Systolic blood pressure Diastolic blood pressure Provider Name and Address Organization Details Last Updated DateTime 4 185.42 cm 62.5 kg/m2 497763. 34 g 98.7 [degF] 18 /min 102 /min 141 mm[Hg] 89 mm[Hg] Shira Tamayo MA [facility] 4 14:48:15 Social History Question Answer Notes LastModified by Organizat ion Details LastModified Time Tobacco Smoking Status Former Smoker Ivet Bob MA [facility], [facility] 02/05/2023 09:18:04 Do You Have An Advance Directive? No Information n ot available 02/05/2023 What Is Your Level Of Alcohol Consumption? None Information not available 02/05/2023 In The 14 Days Before Symptom Onset, Have You Had Close Contact With A Laboratory-confirm ed COVID-19 While That Case Was Ill? No Information n ot available 02/05/2023 In The 14 Days Before Symptom Onset, Have You Had Close Contact With A Person Who Is Under Investigation For COVID-19 While That Person Was Ill? No Information not available 02/05/2023 Have You Been To An Area Known To Be High Risk For COVID-19? No Information not available 02/05/2023 Are You Currently Employed? 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 10/12/2023 Information not available 10/12/2023 What Is Your Relationship Status? Information not available 02/05/2023 Are You Sexually Active? Yes Information not available 02/05/2023 Do You Have Smoke And Carbon Monoxide Detectors In Your Home? Yes Information not available 02/05/2023 At What Age Did You Start Smoking Tobacco? 14 Information not available 02/05/2023 Are You Passively Exposed To Smoke? No Information no t available 02/05/2023 Do You Use Any Illicit Or Recreational Drugs? No Information not available 02/05/2023 Has Tobacco Cessation Counseling Been Provided? Yes Information not available 02/05/2023 On What Date Was Tobacco Cessation Counseling Provided? 10/12/2023 Information not available 10/12/2023 Sex: Male Functional Status None recorded. Mental Status None recorded. Family History Relationship Description Onset Age of this Age Resolved Age Notes LastModified by Organization Details LastModified Time Mother Glaucoma [email or web address] Not available 02/05/2023 09:17:05 Father Disorder of bone 66 bone cancer [email or web address] Not available 02/05/2023 09:17:59 Notes:nothing new 10/12/23 Medical History Condition Response Coronary Artery Disease N Other N High Blood Pressure N Atrial Fibrillation N Kidney or Bladder Problems N Thyroid Problems N GI Problems N Depression N COPD N Blood Clots N Skin Problems N Anemia N Heart Attack (MT) N Anxiety Disorder N Diabetes Y Muscle, Joint, or Bone Problems N Seizures/Epilepsy N Acid Reflux (GERD) N Cancer N Stroke N Asthma N Allergies N High Cholesterol N Hepatitis N Liver Disease N Headaches N Heart Failure N Osteoporosis N Immunizations Vaccine Type Date Status Note Provider Nam e and Address Organization Details Recorded Time Pneumococcal conjugate PCV20, polysaccharide [id number] conjugate, adjuvant, PF 3 completed MELANIE POOL MD Attn: Accounting,[address] [place], [address], [facility] 02/15/2023 12:40:21 Past Encounters Encounter ID Performer Location Encounter Start Date Encounter Closed Date Diagnosis/Indication Diagnosis SNOMED-CT Code Diagnosis ICD10 Code Diagnosis Note [id number] MD Abraham CHANDLER 14 IM [address] [facility] [place] [address] 02/05/2023 08:21:56 02/16/2023 14:01:06 Screening for malignant neoplasm of colon 017974508 Z12.11 Screening colonoscop y via GI referral. Essential hypertension 25740265 I10 initially on amlodipine 10 mg. Lisinopril is better considerin g hx of diabetes and renal protective . Will continue to follow up. Type 2 rios betes mellitus 95622879 E11.9 Significan t weight of 457. Will follow up on a1c and refill metformin and check CMP/renal function and check on B12 (metformin can affect B12). Will send for annual diabetic ophthalmol ogy referral. Morbid obesity 282240795 E66.01 counselled on 30 min/day for 5x a day. Patient states working on diet. Will check lipid panel and assess ASCVD risk factors for statin dose. Active or passive immunization [id number] Z23 administer ed prevnar 20. [id number] MD Abraham CHANDLER 14 IM [address] [facility] [place] [address] 04/26/2023 09:06:13 05/03/2023 09:20:09 Hyperlipidemia 89740358 E78.5 High dose statin recommende d using ASCVD risk calculator . Will refill statin. Type 2 rios betes mellitus 38431810 E11.9 Will follow up on a1c and refill metformin. Essential hypertension 79594886 I10 Repeated BP remains high at 148/92 and will increase lisinopril to 20 mg daily. Patient agreeable. HIV screening 480466865 Z11.4 Patient counselled on one time HIV screening and agreeable. Screening for malignant neoplasm of colon 572273868 Z12.11 Screening colonoscop y via GI referral. Morbid obesity 227785608 E66.01 counselled on 30 min/day for 5x a day. Patient states working on diet. 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 Viral syndrome 290253660 B34.9 Pt endorses diarrhea, cough with phlegm production .Counseled on importance of rehydratio n following diarrhea episodes.D oes not exceed 3-5x per day.Durati on of 5 days now, most likely viral, lungs are CTAB, tympanic membranes clear further suggesting viral illness. triple test reveals positive COVID - see COVID AP. COVID-19 [id number] U07.1 Patient tested positive for COVID 19 on viral swab.Quali fies for paxlovid treatment, GFR reviewed >100 qualifies for the 300 mg tablets/tr eatment.Co nsidered high risk as morbidly obese, hypertensi on, diabetes.O 2 sats at 92% and is NAD at this time.advis ed of post-covid syndrome and myalgias are part of the clinical picture;sy mptomatic management is being managed well with ibuprofen, mucinex, dayquil/ny quil.Work note provided for quarantine .Paxlovid 300 mg script sent to lynda Stein per patients request. Essential hypertension 91560859 I10 Counseled on htn and would not like an additional medicine at this time.under stands that obesity is a significan t factor to his presenting HTN and declines additional medication s at this time. Will address on next follow up visit with Dr. Mejia Parker. [id number] MD Abraham Barker 14 IM [address] [facility] [address] [place] [address] 10/12/2023 14:28:56 10/16/2023 14:33:47 Morbid obesity 480542235 E66.01 Acute gastroenteritis 69 459790 K52.9 most likely viral in naturework note providedre turn precaution s providedad vised hydration Type 2 rios betes mellitus 20753552 E11.9 Last A1c: 7.2 (04/2023), 10 todayMedic ations: metformin 1g po bid - tried to prescribe empagliflo zin but pt does not have insurance. Will add glipizide 5mg po bid with mealsAnnua l foot exam ( / ): dueAnnual eye exam ( / ): dueyearly BMP (01/2023): Cr 0.653-5 yearly ACR (01/2023): severe proteinuri a (ACR 1114 - severe)Giv en Mediterran marquis diet toady. Pneumococc usInfluenz a:HBV vaccine: Essential hypertension 70544913 I10 uncontroll ed HTNnot exercising or diet controllin gadvised increased exercise and Mediterran marquis dietadd amlodipine 5 mg po od for further BP control. Health Concerns Section Related Observation LastModified by Organization Detai ls LastModified Time None Recorded Concern Status LastModified by Organization Details LastModified Time None Recorded Advance Directives Directive N: Payers Encounter Date Sequence Insurance Name Policy Number Policy Mckeon Covered Member ID Mckeon Member ID Guarantor Name 02/05/2023 1 *SELF PAY* Ca rl Topping 04/26/2023 1 *SELF PAY* Ca rl Topping 05/16/2023 1 *SELF PAY* Ca rl Topping 06/05/2023 1 *SELF PAY* Ca rl Topping 10/12/2023 1 *SELF PAY* Ca rl Topping Notes Date Note Type Note Provider Name and Address Organization Details Recorded Time 02/05/2023 text/html Gareth is a 47 yo M with a past medical history of Diabetes Type 2, hypertension presenting to critical access hospital care and for med refill. He takes amlodipine for his hypertension and BP today is 145/91. Otherwise No other symptoms or complaints. Started working for the [employer] in [place] and doesnt have insurance yet. Patient endorses healthy eating habits and stays away from sugar as much as possible. He is working on his dietary intake and eats fruits and veggies and also protein, endorses . Does endorse walking but not other exercise. Says he came from [place] in June and would like med refills.Patient has a history of laproscopic gastric banding in 2009 which was removed after due to complications. Denies alcohol use. Former smoker smoked for 30 years and smoked 160 cigarettes a week. Stopped in 2019. Denies dizziness, chest pain, SOB, mood symptoms, abdominal pain, polyuria or any other symptoms. MELANIE POOL MD Attn: Accounting[address] [facility], [place], [address], [facility] 02/15/2023 12:40:32 04/26/2023 text/html Gareth is a 47 yo M with a past medical history of hyperlipidemia, Diabetes Type 2, hypertension presenting for follow up. works for [employer] and has minimal insurance coverage and was called regarding financial service professional. But patient hasn't moved forward because wasnt sure how much it would cost when he called. He takes lisinopril for his hypertension and BP today is 146/90. Otherwise No other symptoms or complaints. Patient endorses healthy eating habits and stays away from sugar as much as possible. He is working on his dietary intake and eats fruits and veggies and also protein, endorses . Does endorse walking but not other exercise. Says he came from [place] in June and would like med refills.Patient has a history of laproscopic gastric banding in 2009 which was removed after due to complications. Denies alcohol use. Former smoker smoked for 30 years and smoked 160 cigarettes a week. Stopped in 2018. Denies dizziness, chest pain, SOB, mood symptoms, abdominal pain, polyuria or any other symptoms. MELANIE POOL MD Attn: Accounting,[address] [facility], [place], [address], [place] [facility] 05/02/2023 13:10:10 05/16/2023 text/html 47 yo M presents to clinic for cough, cold symptoms x 4 d duration and need for recheck BP. 1) cough, cold, sore throat - pt endorses feeling like he is swallowing knives or blades, stuffed head, after a coughing fit he feels his temperature change and gets flushed. Pt endorses trying dayquil, nyquil, mucinex, pain relief (paracetamol), throat lozenges - without any relief of symptoms. Pt endorses difficulty sleeping due to feeling like a tickling in his chest. Pt endorses mucus cough productive is yellow of mask. Associated diarrhea - cannot endorse if due to lactose intolerance and increasing dairy intake. Denies nausea, vomit, abdominal pain, rashes, recent travel, ear pain, scratchy eyes. Denies leg swelling. 2) HTN - patient BP today remains elevated. Patient agreeable to increasing lisinopril from 20 to 40 mg. MELANIE POOL MD Attn: Accounting[address] [place], [address], [facility] 05/22/2023 19:05:48 06/05/2023 text/html 47 yo M presents to clinic for cough, cold symptoms x 5d duration and need for recheck BP.Diarrhea, stuffiness, self medicating with ibuprofen and mucinex, tactile fever/chills, measurement in the clinic was not feverish, denies tylenol use, cough, occasional bronze colored mucous.Does endorse headache and stuffiness behind eyes. Pt endorses trying dayquil/nyquil, mucinex, pain relief (paracetamol), throat lozenges - without any relief of symptoms. Pt endorses difficulty sleeping due to feeling like a tickling in his chest. Pt endorses mucus cough productive is yellow (can be seen in the mask). Associated diarrhea - cannot endorse if due to lactose intolerance and increasing dairy intake.Denies nausea, vomit, abdominal pain, rashes, recent travel, ear pain, scratchy eyes. Denies leg swelling. Pt denies any night sweats, changes in vision, cough, dysphagia, CP, palpitations, SOB, CVA tenderness, Abd discomfort, n/v/d/c, changes in urination frequency/dysuria, endorses fatigue, muscles aches. HTN - patient BP today remains elevated. Patient agreeable to increasing lisinopril from 20 to 40 mg.understands that his BP is elevated 2/2 elevated BMI, is not willing to take any new medications MELANIE POOL MD Attn: Accounting[address] [place], [address], [facility] 06/15/2023 09:30:11 10/12/2023 text/html 48M PMHx HTN, HL D, T2DM presenting for routine follow up. He has no new major concerns today. Pt denies headache, dizziness, syncope, change in vision, congestion, sore throat, nausea, vomiting, chest pain, cough, SOB, orthopnea, abdominal pain, constipation, or difficulty urinating. He reports having diarrhea every 2 hours for the past 3 days. He's had bloating during this time as well. He's not sure if it is improving or getting worse. He had been well prior to this. Marko Bey MD Attn: Accounting[address] [place], [address], [facility] 10/15/2023 17:50:19
[2024-10-06 14:05] LABS: Anion Gap 9 mmol/L (4-12); Blood Urea Nitrogen 13 mg/dL (9-20); Calcium 9.5 mg/dL (8.4-10.2); Carbon Dioxide 32 mmol/L (22-30); Chloride 100 mmol/L (98-107); Estimated Glomerular Filt Rate > 60; Glucose 129 mg/dL (65-110); Potassium 4.9 mmol/L (3.4-5.0); Sodium 141 mmol/L (137-145)
== END 2024-10-06 11:51 | disposition home or self-care (01) ==
LOC: ANHGOSHLAB 11:52
PROVIDERS: PCP Nurse Practitioner; Visit Provider Clinical Nurse Specialist
DX: E87.5 Hyperkalemia (principal)
CPT/HCPCS: 36415; 80048

== ENCOUNTER 2025-01-08 14:10 | Outpatient (CLI) | payer BC, SELFPAY ==
--- NOTE | ~2025-01-08 | US_ITS ---
EXAM: RENAL ULTRASOUND HISTORY: R80.8 - Other proteinuria COMPARISON: None FINDINGS: RIGHT KIDNEY: 13.3 x 5.6 x 7.1 cm. The parenchyma of the right kidney is unremarkable in echogenicity. No hydronephrosis or bulky renal calculi. LEFT KIDNEY: 15.9 x 6.7 x 5.5 cm No hydronephrosis or renal calculi. The parenchyma of the left kidney is unremarkable in echogenicity. BLADDER: Poorly visualized. IMPRESSION: No hydronephrosis or renal calculi. No findings suggesting medical renal disease. Reviewed, dictated and finalized at location A.
== END 2025-01-08 14:11 | disposition home or self-care (01) ==
LOC: MICIMG 14:12
PROVIDERS: PCP Internal Medicine; Visit Provider Internal Medicine Nephrology
DX: R80.8 Other proteinuria (principal); E11.29 Type 2 diabetes mellitus with other diabetic kidney complication; I10 Essential (primary) hypertension
CPT/HCPCS: 76775

== ENCOUNTER 2025-01-26 13:08 | Outpatient (CLI) | payer BC, SELFPAY ==
--- OUTSIDE RECORDS SUMMARY | 2025-01-26 13:31 | XMS_ITS | Clinical Summary ---
Author Organization [facility] Address [address] [place] [address] Phone Care Team Providers Care Airways Control Specialist Name Role Phone Ellyn Phillips APRN, [facility] Primary Care Provider [phone]- [phone] Allergies No known active allergies Medications atorvastatin [...] use of insulin 11/08/2023 Primary hypertension 11/08/2023 Encounters Date Type Department Care Team Description 12/05/2024 Telephone [facility] [address] [place] [address] Ellyn Phillips, FLAVOR TANK TENDER, LEGAL ARBITRATOR Prior Authorization (Ozempic) from Last 3 Months Immunizations Immunization Administration Dates Next Due Pneumococcal conjugate PCV20 , polysaccharide OYA003 conjugate, adjuvant, PF 02/05/2023 Family History Medical [...] = 0.6 oz pur e alcohol) Socially [employer] Utilities Answer Date Recorded In the past 12 months has e electric, gas, oil, or water company threatened to shut off services in your home? No 11/07/2023 Social Connection and Isolation Panel Answer Date Recorded In a typical week, how many times do you talk on the phone with family, friends, or neighbors? Once a week 11/07/2023 How often do you get together with friends or re latives? Once a week 11/07/2023 How often do you attend mandaen or sabianist serv ices? Never 11/07/2023 Do you belong to any clubs o r organizations such as mandaen groups, unions, fraternal or athletic groups, or [...] care, and heating? Not very hard 11/07/2023 [facility] - Occupational Stress [...] place to sleep or slept in a senior living (including now)? No 11/07/2023 Sexually Active Control [...] 10:11 AM CDT Height 185.4 cm (6' 1) 02/12/2024 2:27 PM CDT Body Mass Index 59.37 02/08/2024 10:11 AM CDT Plan of Treatment Health Maintenance Due Date Last Done Comments Diabetes: Eye Exam 1973 Diabetes: Foot Exam 1973 TdaP Immunization 1973 Hepatitis B Immunization (1 of 3 - 19+ 3-dose series) 1992 Cologuard 2018 Colonoscopy 2018 Colorectal Cancer Screening 2018 Immunochemical Fecal Occult Blood 2018 Zoster Immunization (1 of 2) 2023 SARS-COV-2 Immunization ( - season) 2024 Diabetes: Hemoglobin A1c 05/20/2024 11/19/2023 Diabetes: Nephropathy Screening 11/18/2024 Influenza Immunization (#1) 2025 Respiratory Syncytial Virus (RSV) Immunization (Adult) (1 - 1-dose 75+ series) 2048 Pneumococcal Immunization (5 0+ years) Completed 02/05/2023 Pneumococcal Immunization Combined Discontinued 2022 Hepatitis C Virus (HCV) Screening Completed 024 Human Papillomavirus (HPV) Immunization Aged Out No longer eligible b ased on patient's age to complete this topic Meningococcal Immunization (ACWY) Aged Out No longer [...] ESTIMATED GLUCOSE (11/19/2023 8:47 AM CDT) Pathologist [facility] HGB-A1C 8.6(H) 4.0 - 6.0 % 11/19/2023 12:37 PM CDT [facility] Est Average Glucose 200.1 mg/dL 11/19/2023 12:37 PM CDT [facility] Blood Venipuncture / Unknown 11/19/2023 8:47 AM CDT 11/19/2023 8:47 AM CDT Narrative [facility] - 11/19/2023 12:37 PM CDT HEMOGLOBIN A1C: DIABETIC PATIENTS: WELL-CONTROLLED: 6.2 - 7.0 INTERMEDIATE WELL-CONTROLLED: 7.0 - 9.0 POORLY-CONTROLLED: >9.0 us Ellyn Phillips APRN, LEGAL ARBITRATOR CHEMISTRY ORDERABLES Final Result [facility] [address] [place] [address] * HEPATITIS C ANTIBODY (11/19/2023 8:47 AM CDT) Pathologist [facility] hepatitis C antibody 0.08 <1 S/CO 11/19/2023 10:44 PM CDT [facility] Comment: Signal/Cutoff ratio < 0.79 is Nondetected Signal/Cutoff ratio 0.80-0.99 is Grayzone Signal/Cutoff ratio > 0.99 is Detected Supplemental assays are recommended if signal/cutoff ratio is >/=1.00. Signal/cutoff ratio result >/= 5.00 is 97% predictive of positivity for recombinant immunoblot assay (RIBA) and will be reported to the [place] Department of Public Health as required. Blood Venipuncture / Unknown 11/19/2023 8:47 AM CDT 11/19/2023 8:47 AM CDT us Ellyn Phillips APRN, CNP CHEMISTRY ORDERABLES Final Result [facility] [address] [place] [address], * (ABNORMAL) CMP (COMPREHENSIVE METABOLIC PANEL) (11/19/2023 8:47 AM CDT) SODIUM 142 136 - 145 mmol/L 11/19/2023 12:55 PM CDT [facility] POTASSIUM 4.7 3.5 - 5.1 mmol/L 11/19/2023 12:55 PM CDT [facility] CHLORIDE 104 98 - 107 mmol/L 11/19/2023 12:55 PM CDT [facility] CO2, VENOUS 29 22 - 30 mmol/L 11/19/2023 12:55 PM CDT [facility] ANION GAP 13.7 <18.0 mmol/L 11/19/2023 12:55 PM CDT [facility] GLUCOSE 181(H) 70 - 99 mg/dL 11/19/2023 12:55 PM CDT [facility] BUN 12 8 - 26 mg/dL 11/19/2023 12:55 PM CDT [facility] CREATININE, BLOOD 0.70 0.70 - 1.30 mg/dL 11/19/2023 12:55 PM CDT [facility] BUN/CREATININE RATIO 17 12 - 20 ratio 11/19/2023 12:55 PM CDT [facility] TOTAL PROTEIN 7.1 6.3 - 8.2 g/dL 11/19/2023 12:55 PM CDT [facility] ALBUMIN 3.8 3.5 - 5.0 g/dL 11/19/2023 12:55 PM CDT [facility] A/G RATIO 1.2 1.0 - 2.2 11/19/2023 12:55 PM CDT [facility] CALCIUM 8.9 8.7 - 10.5 mg/dL 11/19/2023 12:55 PM CDT [facility] T BILI 0.4 0.2 - 1.2 mg/dL 11/19/2023 12:55 PM CDT [facility] SGOT (AST) 14 5 - 34 U/L 11/19/2023 12:55 PM CDT [facility] SGPT (ALT) 25 0 - 55 U/L 11/19/2023 12:55 PM CDT [facility] ALKALINE PHOSPHATASE 108 40 - 150 U/L 11/19/2023 12:55 PM CDT [facility] IS THE PATIENT REQUIRED TO BE FASTING? No 11/19/2023 12:55 PM CDT [facility] GFR, ESTIMATED >60 >=60 11/19/2023 12:55 PM CDT [facility] Comment: Creatinine Clearance is the preferred criteria for selecting drug dose adjustments in renally impaired patients. The GFR is provided as additional pertinent clinical information. GFR is reported in mL/min/1.73 sq m. Calculation based on the Chronic Kidney Disease Epidemiology Collaboration (CKD- EPI) equation refit without adjustment for race. GFR, EST. >60 >=60 024 12:55 PM CDT [facility] GFR, EST. NONAFRICAN >60 >=60 11/19/2023 12:55 PM CDT [facility] Blood Venipuncture / Unknown 11/19/2023 8:47 AM CDT 11/19/2023 8:47 AM CDT us Ellyn Phillips APRN, LEGAL ARBITRATOR CHEMISTRY ORDERABLES Final Result [facility] [address] [place] [address] from Last 3 Months or Most Recently Relevant to Health Maintenance Insurance [facility] Care Teams Airways Control Specialist Relationship Specialty Start Date End Date Ellyn Phillips APRN, LEGAL ARBITRATOR [address] [address] PCP - General Certified Nurse Practitioner 02/12/24
--- OUTSIDE RECORDS SUMMARY | 2025-01-26 13:31 | XMS_ITS | Encounter Summary ---
Author Organization [facility] Address [address] [place] [address] Phone Care Team Providers Care Supervisor Poultry Hatchery Name Role Phone Ellyn Phillips APRN, MARCI Primary Care Provider [phone]- [phone] Ellyn Phillips APRN, MARCI Primary Care Provider [phone]- [phone] Reason for Visit * Reason Comments Medication Refill Encounter Details Date Type Department Care Team (Late st Contact Info) Description 01/19/[address] [facility] - Primary Care - [place] [address] [place] [address] Ellyn Phillips APRN, INCREMENT MANAGER [address] [place] [address] Medication Refill Social History Tobacco Use Types Packs/Day Years Used Date Smoking Tobacco: Former Cigarettes Smokeless Tobacco: Never Alcohol Use Standard Drinks/Week Comments Yes 0 (1 standard drink = 0.6 oz pur e alcohol) Socially C Utilities Answer Date Recorded In the past 12 months has [employer], gas, oil, or water company threatened to [...] week 11/07/2023 How often do you attend anabaptist or buddhism serv ices? Never 11/07/2023 Do you belong to any clubs o r organizations such as anabaptist groups, unions, fraternal or athletic groups, or [...] care, and heating? Not very hard 11/07/2023 [facility] - [...] place to sleep or slept in a half-way (including now)? No 11/07/2023 Sexually Active Control [...] insulin documented in this encounter Care Teams Supervisor Poultry Hatchery Relationship Specialty Start Date End Date Ellyn Phillips APRN, INCREMENT MANAGER [address] [place] [address] PCP - General Certified Nurse Practitioner 11/08/23 02/10/24 Ellyn Phillips APRN, INCREMENT MANAGER [address] [place] [address] PCP - General Certified Nurse Practitioner 02/12/24 documented as of this encounter
--- OUTSIDE RECORDS SUMMARY | 2025-01-26 13:31 | XMS_ITS | Clinical Summary ---
Author Organization [facility] Address [address] [place] [address] Care Team Providers Care Diesel Engine Specialist Name Role Phone Unavailable Primary Care Provider Unavailabl e Source Comments [facility],non-owned Affiliates and Associated Physician Practices is amultiple site organization consisting of ambulatory clinics and hospital sitesin [place], [place], [place] and [place]. This disclosure is being madepursuant to the Care Everywhere program and may not contain all information available regarding this patient. Last updated 18.[facility] Social History Tobacco Use Types Packs/Day Years Used Date Smoking Tobacco: Never Assessed Sex and Gender Information Value Date Recorded Sex Assigned at Not on file Legal Sex Male 8:11 AM CDT Gender Identity Not on file Sexual Orientation Not on file Plan of Treatment Upcoming Encounters Date Type Department Care Team (Late st Contact Info) Description 02/06/2025 2:00 PM CDT Office Visit [facility] [address] [facility], [facility] [address] [place] [address] [place] [id number] [place] [address] Health Maintenance Due Date Last Done Comments COLOGUARD (AGES 45-75) - COL ON CA SCREENING 1973 COLON MONITORING 1973 COLONOSCOPY - COLON CA SCREENING 1973 CT COLONOGRAPHY - COLON CA SCREENING 1973 Colorectal Cancer Screening 1973 FIT - COLON CA SCREENING 1973 FLEX SIG - COLON CA SCREENING 1973 LIPID TESTING 1973 HIV SCREENING 1988 HEPATITIS C SCREENING 06/06/1991 DTAP/TDAP/TD VACCINES (1 - Tdap) 1992 HEPATITIS B VACCINE (1 of 3 - 19+ 3-dose series) 1992 PNEUMOCOCCAL VACCINE 50+ (1 of 1 - PCV) 2023 ZOSTER VACCINE (1 of 2) 2023 COVID-19 VACCINE (1 - 2023-2 5 season) 2024 DEPRESSION SCREENING 06/18/2024 INFLUENZA VACCINE (#1) 2025 HIB VACCINE Aged Out No longer eligi ble based on patient's age to complete this topic HPV VACCINE Aged Out No longer eligi ble based on patient's age to complete this topic MENINGOCOCCAL (Group B) VACC INE SHARED DECISION-MAKING Aged Out No longer eligibl e based on patient's age to complete this topic MENINGOCOCCAL GROUPS A/C/Y/W VACCINE Aged Out No longer eligible b ased on patient's age to complete this topic Insurance BC/[facility]
[2025-01-26 18:44] LABS: Total Protein Urine Random 98 mg/dL; Ur Ttl Prot Creatinine Ratio 0.34 mg/mg (0-0.20)
[2025-01-26 19:36] LABS: Albumin Level 4.4 g/dL (3.5-5.1); Anion Gap 9 mmol/L (4-12); Blood Urea Nitrogen 13 mg/dL (9-20); Calcium 9.7 mg/dL (8.4-10.2); Carbon Dioxide 27 mmol/L (22-30); Chloride 104 mmol/L (98-107); Estimated Glomerular Filt Rate > 60; Glucose 87 mg/dL (65-110); Potassium 4.5 mmol/L (3.4-5.0); Sodium 140 mmol/L (137-145)
[2025-01-27 15:09] LABS: Albumin 3.6 g/dL (2.9-4.4); Alpha-1-Globulin 0.2 g/dL (0.0-0.4); Alpha-2-Globulin 1.1 g/dL (0.4-1.0); Gamma Globulin 1.0 g/dL (0.4-1.8)
[2025-01-28 15:09] LABS: Albumin, U 62.2 % (.); Alpha-1-Globulin, U 3.1 % (.); Alpha-2-Globulin, U 12.8 % (.); Beta Globulin, U 13.9 % (.); Gamma Globulin, U 8.1 % (.)
== END 2025-01-26 13:09 | disposition home or self-care (01) ==
LOC: ANHGOSHLAB 13:09
PROVIDERS: PCP Internal Medicine; Visit Provider Internal Medicine Nephrology
DX: R80.8 Other proteinuria (principal); E11.29 Type 2 diabetes mellitus with other diabetic kidney complication; I10 Essential (primary) hypertension
CPT/HCPCS: 36415; 80069; 82570; 84155; 84156; 84165; 84166; 86037; 86160; 86225

== ENCOUNTER 2025-05-04 10:33 | Outpatient (CLI) | payer BC, SELFPAY ==
[2025-05-04 13:04] LABS: Hematocrit 44.8 % (42.0-52.0); Hemoglobin 14.2 g/dL (14.0-18.0); Immature Granulocyte Percent A 0.5 % (0-0.5); Lymphocytes Absolute Auto 2.33 K/mm3 (0.9-3.2); Mean Corpuscular HGB Conc 31.7 g/dl (32-36); Mean Corpuscular Hemoglobin 28.5 pg (26-34); Mean Corpuscular Volume 89.8 fl (80-100); Nucleated Red Blood Cells Absolute Auto 0.000 K/mm3 (0.0-0.012); Nucleated Red Blood Cells Perc 0.0 % (0.0-0.2); Platelet Count Result 368 k/mm3 (150-375); Red Blood Count 4.99 M/mm3 (4.6-6.20); White Blood Count 10.9 K/mm3 (4.5-10.0)
[2025-05-04 13:10] LABS: Alanine Aminotransferase 19 U/L (6-50); Albumin Level 4.3 g/dL (3.5-5.1); Alkaline Phosphatase 105 U/L (38-126); Anion Gap 10 mmol/L (4-12); Aspartate Amino Transferase 46 U/L (17-59); Bilirubin,Total 0.5 mg/dL (0.2-1.3); Blood Urea Nitrogen 12 mg/dL (9-20); Calcium 9.3 mg/dL (8.4-10.2); Carbon Dioxide 29 mmol/L (22-30); Chloride 102 mmol/L (98-107); Cholesterol 119 mg/dL (0-200); Estimated Glomerular Filt Rate > 60; Glucose 125 mg/dL (65-110); HDL Direct 34 mg/dL; Potassium 4.3 mmol/L (3.4-5.0); Sodium 141 mmol/L (137-145); Total Protein 8.1 g/dL (6.3-8.2); Triglycerides 97 mg/dL (<150)
[2025-05-04 13:45] LABS: Prostate Specific Antigen 0.2 ng/mL (< OR = 4.0)
[2025-05-04 14:54] LABS: Hemoglobin A1C 5.8 % (<5.7)
== END 2025-05-04 10:34 | disposition home or self-care (01) ==
LOC: ANHGOSHLAB 10:34
PROVIDERS: PCP Nurse Practitioner; Visit Provider Nurse Practitioner
DX: E11.9 Type 2 diabetes mellitus without complications (principal); Z12.5 Encounter for screening for malignant neoplasm of prostate
CPT/HCPCS: 36415; 80053; 80061; 83036; 84153; 85025; G0103